=== PATIENT | female | born 1980 | race Caucasian/White ===

== ENCOUNTER 2018-05-09 19:40 | Emergency (ER) | payer MEDICAID ==
[~2018-05-09] VITALS: Ht 165.1 cm; Wt 72.7 kg
[2018-05-09 19:47] VITALS: BP 149/52
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
== END 2018-05-09 21:35 | disposition home or self-care (01) ==
LOC: EDBD 19:41 → ER 19:41
DX: S60.812A Abrasion of left wrist, initial encounter (principal); S60.811A Abrasion of right wrist, initial encounter; M25.511 Pain in right shoulder; W22.8XXA Striking against or struck by other objects, initial encounter; Y93.89 Activity, other specified; Y92.89 Other specified places as the place of occurrence of the external cause; Y99.8 Other external cause status
CPT/HCPCS: 73030; 73080; 73130; 99283

== ENCOUNTER 2022-01-16 08:34 | Emergency (ER) | payer MEDICAID, OTHER ==
[~2022-01-16] VITALS: Ht 162.6 cm; Wt 73.4 kg
[2022-01-16 09:21] VITALS: BP 113/79
[2022-01-16] MEDS ORDERED: ERYT1OIN6 EACHEYE (11:40)
== END 2022-01-16 12:05 | disposition home or self-care (01) ==
LOC: ER 08:36
DX: H10.33 Unspecified acute conjunctivitis, bilateral (principal); Z79.899 Other long term (current) drug therapy
CPT/HCPCS: 99283

== ENCOUNTER 2025-02-23 10:10 | Emergency (ER) | payer OTHER ==
[~2025-02-23] VITALS: Ht 162.6 cm; Wt 94.5 kg
[2025-02-23 10:12] VITALS: BP 162/84; PULSE 88; RESP 16; TEMP 97.4; O2SAT 98
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
== END 2025-02-23 11:31 | disposition home or self-care (01) ==
LOC: ER 10:10
DX: M25.531 Pain in right wrist (principal); M25.522 Pain in left elbow; F17.290 Nicotine dependence, other tobacco product, uncomplicated; Z72.89 Other problems related to lifestyle
CPT/HCPCS: 99282